=== PATIENT | male | born 1960 ===

== ENCOUNTER 2023-03-11 09:24 | Emergency (ER) | payer OTHER ==
[~2023-03-11] VITALS: Ht 160 cm; Wt 82.6 kg
[~2023-03-11 09:24] MED LIST: AMBIEN10 MG PO; ASA81 MG PO; BICARSIM FORTE125 MG PO; CIPRO500 MG PO; ISOSORBIDE DINI30 MG PO; LEVSIN/SL0.125 MG PO; LEVSIN/SL0.125 MG SL; LIPITOR20 MG PO; PEPCID40 MG PO; PHENERGAN25 MG PO; PLAVIX75 MG PO; SUCRALFATE1 GM/10 ML PO; SYNTHROID75 MCG PO; TOPROL XL25 M1 PO; [UNRECOGNIZED DRUG - REMARK]
== END 2023-03-11 15:46 | disposition home or self-care (01) ==
LOC: ER 09:24
DX: K66.0 Peritoneal adhesions (postprocedural) (postinfection) (principal); K57.32 Diverticulitis of large intestine without perforation or abscess without bleeding; N20.0 Calculus of kidney; I10 Essential (primary) hypertension; E11.9 Type 2 diabetes mellitus without complications; Z79.84 Long term (current) use of oral hypoglycemic drugs

== ENCOUNTER 2024-04-26 08:42 | Outpatient (CLI) | payer OTHER | END 2024-04-26 08:46 | disposition home or self-care (01) | LOC: SONOGRAMA 08:42 | PROVIDERS: ATTEND Radiology Diagnostic Radiology | DX: R10.9 Unspecified abdominal pain (principal); L76.34 Postprocedural seroma of skin and subcutaneous tissue following other procedure ==